=== PATIENT | female | born 1945 | race Caucasian/White ===

== ENCOUNTER → 2017-02-21 | Outpatient (CLI) | payer MEDICARE ==
--- NOTE | 2017-02-21 14:02 | MM ---
Reason for exam: screening (asymptomatic). Last mammogram was performed 1 year ago. History: Patient is postmenopausal. Family history of breast cancer in maternal grandmother. Physical Findings: A clinical breast exam by your physician is recommended on an annual basis and results should be correlated with mammographic findings. MG 3D Screening Mammo W/Cad Bilateral CC and MLO view(s) were taken. Prior study comparison: February 10, 2016, bilateral MG screening mammo w CAD. February 06, 2015, bilateral MG screening mammo w CAD. The breast tissue is heterogeneously dense. This may lower the sensitivity of mammography. Stable benign calcifications. There is no discrete abnormality. No significant changes when compared with prior studies. ASSESSMENT: Benign, BI-RAD 2 RECOMMENDATION: Routine screening mammogram of both breasts in 1 year.
== END | disposition home or self-care (01) ==
LOC: RADMAMWWP 09:12
PROVIDERS: ATTEND Family Medicine
DX: Z12.31 Encounter for screening mammogram for malignant neoplasm of breast (principal)
CPT/HCPCS: 77063; G0202

== ENCOUNTER 2017-03-14 08:54 | Day surgery (SDC) | payer MEDICARE ==
[2017-03-13 08:38] VITALS: BMI 23.6
[~2017-03-14 08:54] MED LIST: LACTATED RINGERS 1,000 ML IV SCH
[2017-03-14 09:45] VITALS: RESP 16; TEMP 97.5
[2017-03-14] MEDS ORDERED: LIDOCAINE 1% 20 ML VIAL (10MG/ML) FOR IV START INTRADERMA ONE (09:53)
[2017-03-14] MEDS ORDERED: LIDOCAINE 1% INJ 10MG/ML (20 ML MDV) ONE (09:58)
[2017-03-14] MEDS ORDERED: PROPOFOL 10 MG/ML 20 ML VIAL IV ONE (09:58)
--- NOTE | 2017-03-14 10:37 | P.PCN ---
Date of Procedure: 03/14/17 Preoperative Diagnosis: Postoperative Diagnosis: Procedure(s) Performed: Procedure: Total colonoscopy. Preoperative diagnosis: Screening for neoplasia, patient has family history of colon cancer in her father. Postoperative diagnosis: Mild sigmoid diverticulosis, otherwise, exam to the cecum within normal limits.. Preparation: HalfLytely prep. Sedation: Was provided by anesthesia. Brief clinical history: The patient is a 71-year-old female who is scheduled for this evaluation for screening for neoplasia because of family history of colon cancer in her dad. Her last examination was in December 2011. She has no abdominal complaints, bleeding or anemia. Procedure: With the patient on her left lateral decubitus position and after informed consent and adequate sedation, the perianal area was inspected and it did not show any fissures or fistulas. There were no masses felt on digital rectal examination. The Olympus CFQ 160L video colonoscope was then inserted in the rectum in the usual fashion and advanced to the cecum. The preparation was good, the mucosa appeared healthy. No polyps or tumors were seen. There was mild sigmoid diverticulosis noted with no evidence of acute diverticulitis or strictures. I retroflexed the endoscope in the rectum before the endoscope was withdrawn. The patient tolerated the procedure well. Plan: The patient was reassured. She will follow-up with you as planned and I recommended repeat exam in 5 years. Implants: Indications for Procedure: Operative Findings: Description of Procedure:
[2017-03-14 10:49] VITALS: BP 137/83; PULSE 71
== END 2017-03-14 11:14 | disposition home or self-care (01) ==
LOC: ORWHC2ENDO 08:54
DX: Z12.11 Encounter for screening for malignant neoplasm of colon (principal); K57.30 Diverticulosis of large intestine without perforation or abscess without bleeding; Z80.0 Family history of malignant neoplasm of digestive organs
CPT/HCPCS: J2001; J2704; G0105

== ENCOUNTER → 2017-08-03 | Outpatient (CLI) | payer MEDICARE | LOC: LABPAT 10:05 | PROVIDERS: ATTEND Orthopaedic Surgery | DX: Z01.818 Encounter for other preprocedural examination (principal) | CPT/HCPCS: 36415; 86850; 86900; 86901; 87070 ==

== ENCOUNTER → 2017-09-15 | Outpatient (CLI) | payer MEDICARE ==
[2017-09-15 09:46] LABS: Basophils % (A) 1 %; Eosinophils # (A) 0.1 k/uL (0-0.7); Eosinophils % (A) 3 %; HCT 43.9 % (34.0-46.0); HGB 13.7 gm/dL (11.4-16.0); Lymphocytes # (A) 0.9 k/uL (1.0-4.8); Lymphocytes % (A) 24 %; MCH 31.2 pg (25.0-35.0); MCHC 31.1 g/dL (31.0-37.0); MCV 100.3 fL (80.0-100.0); Macrocytosis Slight; Mean Platelet Volume 6.7; Monocytes # (A) 0.2 k/uL (0-1.0); Monocytes % (A) 5 %; Neutrophils # (A) 2.5 k/uL (1.3-7.7); Neutrophils % (A) 66 %; Platelet Count 204 k/uL (150-450); RBC 4.37 m/uL (3.80-5.40); RDW 13.9 % (11.5-15.5); WBC 3.8 k/uL (3.8-10.6)
[2017-09-15 09:56] LABS: INR 1.1 (<1.2); Partial Thromboplastin Time 23.4 sec (22.0-30.0); Prothrombin Time 10.3 sec (9.0-12.0)
[2017-09-15 10:06] LABS: Potassium 4.8 mmol/L (3.5-5.1)
== END | disposition home or self-care (01) ==
LOC: LABPAT 09:15
PROVIDERS: ATTEND Orthopaedic Surgery
DX: Z01.812 Encounter for preprocedural laboratory examination (principal); M16.11 Unilateral primary osteoarthritis, right hip; Z51.81 Encounter for therapeutic drug level monitoring; Z79.01 Long term (current) use of anticoagulants
CPT/HCPCS: 36415; 80051; 85025; 85610; 85730; 86850; 86900; 86901

== ENCOUNTER 2017-09-25 11:23 | Inpatient (IN) | payer MEDICARE ==
[2017-09-20 12:11] VITALS: BMI 22.3
--- NOTE | 2017-09-24 15:42 | HP ---
HISTORY AND PHYSICAL Surgery is scheduled for 09/25/2017. Lisa Hope is a 71-year-old patient seen with symptomatic right hip osteoarthritis. After having treatment options discussed, she elected to proceed with direct anterior right total hip arthroplasty. Consent regarding the procedure was obtained. Medical clearance was provided by Dr. Nelson Machado. Cardiac clearance was provided by Dr. Ferreira. PAST MEDICAL HISTORY: Noncontributory. PAST SURGICAL HISTORY: Cataract surgery. DAILY MEDICATIONS: None reported. SOCIAL HISTORY: Patient currently smokes cigarettes. PHYSICAL EXAMINATION: Physical evaluation of the right hip: There is limited range of motion with severe pain, diffuse tenderness. Positive hip impingement sign. Straight leg raise is negative. Distal neurovascular exam is intact. RADIOGRAPHS: Radiographs of the right hip revealed severe osteoarthritis and evidence of avascular necrosis. IMPRESSION: 1. Right hip osteoarthritis. 2. Tobacco use. PLAN: Direct anterior right total hip arthroplasty. MMODL / IJN: [id number] /
[~2017-09-25 11:23] MED LIST changes: +ACETAMINOPHEN TAB 500 MG TAB PO ONE; +DEXAMETHASONE SOD PHOSPHATE 10 MG/ML 1 ML VIAL IV ONE; +HYDROmorphone 0.5 MG/0.5 ML SYRINGE IVP PRN; -LACTATED RINGERS 1,000 ML IV SCH; +MELOXICAM 7.5 MG TAB PO ONE; +ONDANSETRON 4 MG/2 ML VIAL IVP ONE; +TRANEXAMIC ACID 1,000 MG in SODIUM CHLORIDE 0.9% 50 ML IVPB ONE; +ceFAZolin IN SWFI 2 GM/20 ML SYRINGE IVP ONE
[2017-09-25] MEDS: LACTATED RINGERS 1,000 ML IV SCH (11:46)
[2017-09-25] MEDS ORDERED: LIDOCAINE 1% 20 ML VIAL (10MG/ML) FOR IV START INTRADERMA ONE (11:47)
[2017-09-25] MEDS ORDERED: ROPIVACAINE 246.25 MG, EPINEPHrine 0.5 MG, KETOROLAC 30 MG, cloNIDine HCL/PF 80 MCG, WA... MISCELLANE ONE ×5 (12:10)
[2017-09-25] MEDS ORDERED: SODIUM CHLORIDE 0.9% 100 ML BAG ONE (13:00)
[2017-09-25] MEDS ORDERED: fentaNYL (PF) 50 MCG/ML 2 ML AMP ONE (13:00)
[2017-09-25] MEDS ORDERED: TRANEXAMIC ACID 1,000 MG/10 ML VIAL ONE (13:00)
[2017-09-25] MEDS ORDERED: MIDAZOLAM 2 MG/2 ML VIAL ONE (13:00)
[2017-09-25] MEDS ORDERED: ceFAZolin 3,000 MG in SODIUM CHLORIDE 0.9% IRRIGATIO 3,000 ML IRRIGATION ONE (13:32)
[2017-09-25] MEDS ORDERED: LACTATED RINGERS 1,000 ML IV ONE ×2 (13:57→14:51)
[2017-09-25] MEDS ORDERED: MORPHINE SULFATE 2 MG/ML SYRINGE IVP PRN (14:39)
[2017-09-25] MEDS ORDERED: hydrOXYzine PAMOATE 25 MG CAP PO PRN (14:39)
[2017-09-25] MEDS ORDERED: HYDROcodone/APAP 7.5-325MG 1 EACH TAB PO PRN ×2 (14:39)
[2017-09-25] MEDS ORDERED: NALOXONE 0.4 MG/ML 1 ML VIAL IV PRN (14:39)
[2017-09-25] MEDS ORDERED: ONDANSETRON 4 MG/2 ML VIAL IVP PRN (14:39)
[2017-09-25] MEDS ORDERED: MORPHINE SULFATE 4 MG/ML SYRINGE IVP PRN ×2 (14:39)
--- NOTE | 2017-09-25 14:39 | P.OP ---
Date of Procedure: 09/25/17 Preoperative Diagnosis: Right hip osteoarthritis Postoperative Diagnosis: Right hip osteoarthritis Procedure(s) Performed: Direct anterior right total hip arthroplasty Implants: 1. Depuy Corail KA size 12 standard collar press-fit femoral stem 2. Depuy pinnacle press-fit acetabular shell 54 mm 3. Depuy pinnacle polyethylene acetabular liner neutral 36 mm ID 54 mm OD 4. Biolox delta ceramic femoral head +1.5 36 mm Anesthesia: local, spinal Surgeon: Jose Flores Furniture Packer #1: Nik Vasquez Estimated Blood Loss (ml): 200 Pathology: other (Femoral head) Condition: stable Disposition: PACU Indications for Procedure: 71-year-old patient seen with symptomatic right hip osteoarthritis. After treatment options were discussed, she elected to proceed with total hip arthroplasty. Operative Findings: See description of procedure Description of Procedure: The patient was taken to the operative suite. Patient underwent a spinal anesthetic by the department of anesthesia. Patient was then transferred to the Osborn table. Patient was given preoperative IV antibiotics and TXA. Both lower extremities were placed in standard leg spars. The hip was then prepped and draped in the normal sterile orthopedic fashion. A standard anterior incision was made beginning 3 cm lateral and 1 cm distal to the ASIS extending 10 cm. Dissection was then carried down through the subcutaneous soft tissues down to the fascia overlying the tensor fascia tam. An incision was now made through the fascia. Careful dissection was taken down exposing the tensor fascia tam muscle. A Cobra retractor was now placed along the medial femoral neck and a second one along the lateral femoral neck. The venous circumflex vessels were now identified, cauterized and clipped. We identified the anterior hip capsule. An incision was made through the hip capsule along the lateral border. Tag sutures were then placed along the anterior capsule and lateral capsule. We then performed a capsulotomy. Retractors were now placed around the femoral neck itself. A Cobra retractor was now placed along the anterior acetabulum. Good exposure was now noted of the femoral head/neck complex. Residual labrum was debrided out. We placed the extremity into 3 turns of fine traction. We were then able to introduce a skid in between the femoral head and acetabulum. A placed a awl into the femoral head. We took 2 turns of traction off the extremity. Rotation was now released. The femoral head was then dislocated without difficulty. Additional releasing was performed of the capsule. The head was then reduced. All traction was released. A femoral neck cut was now made with a sagittal saw. It was completed with an osteotome at the lateral neck area. The femoral head was now removed without difficulty. The extremity was now rotated to 60 of external rotation. It was locked in position. Residual labrum was now debrided out. Serial reaming was performed of the acetabulum. Once we reached the appropriate size and a trial was position and fit nicely. The appropriate size was now chosen opened and made available. The wound was irrigated with pulse lavage mechanical irrigation. The acetabular cup was introduced into the acetabulum without difficulty. The C-arm/fluoroscopy was now brought into the operative field. We made sure we had a true AP pelvic view. We now under direct C-arm/fluoroscopy introduced into the acetabular component with appropriate version and inclination. It was well seated and stable. The C-arm was pulled back. An appropriate liner was introduced and clicked into position. It was felt to be stable. At this point retractors were removed. The extremity was now placed into 120 external rotation with no traction. The leg was now dropped to the ground and adducted. Appropriate retractors were now positioned along the proximal femur. We also placed our femoral look into position. Additional capsular releasing was performed to gain access to the proximal femur. We now used a box osteotome. A canal finder was now utilized. Serial broaching was now performed until we reached the appropriate size with good overall rotational stability. Appropriate calcar planing was performed. A trial head/neck was placed into position. The hip was now reduced. The C-arm/fluoroscopy was brought back into the operative field. A spot film was obtained of the nonoperative hip. A spot film was obtained of the trial components. Overlays were performed, we noted good overall alignment and positioning for determining leg length. The C-arm/fluoroscopy was pulled back. Retractors were repositioned and the hip was dislocated. The leg was again taken down to the ground and adducted. Appropriate retractors were repositioned as well as the femoral hook. All trial components were removed. The wound was irrigated with pulse lavage mechanical irrigation. The deep soft tissues were infiltrated local analgesic. The femoral implant was opened along with the femoral head. The femoral implant was introduced with good purchase and fixation noted. The femoral head was introduced with good positioning and fixation noted. Retractors were now removed. The hip was now reduced. There appeared be good positioning of the hip. This was confirmed with intraoperative fluoroscopy and spot films were obtained to document that. A second gram of TXA was given. Bipolar cautery had been utilized intermittently through the procedure for hemostasis. The wound was irrigated copiously with pulse lavage mechanical irrigation. The fascia was repaired with Vicryl suture. The subcutaneous soft tissues were repaired in layers with Vicryl suture. The skin was approximated with pernio/Dermabond. Sterile dressings were applied. Patient was then awakened, transferred to a bed and taken to recovery in stable condition. Manny MOLINA assisted with the procedure.
--- NOTE | 2017-09-25 14:39 | XR ---
Fluoroscopy INDICATION: Pain FINDINGS: Fluoroscopy time: 8 seconds. Images obtained: 1. IMPRESSIONS: 1. Documentation of fluoroscopy.
[2017-09-25] MEDS: traMADol 50 MG TAB PO SCH ×2 (17:45→22:37)
[2017-09-25] MEDS: SODIUM CHLORIDE 0.9% 1,000 ML IV SCH (19:21)
[2017-09-25] MEDS: SENNOSIDES-DOCUSATE SODIUM 1 EACH TAB PO SCH ×2 (22:36→22:38)
[2017-09-25] MEDS: ceFAZolin IN SWFI 2 GM/20 ML SYRINGE IVP SCH (22:37)
[2017-09-25 22:52] VITALS: RESP 16
--- NOTE | 2017-09-26 01:03 | CONS ---
CONSULTATION DATE OF SERVICE: 09/25/2017. REASON FOR CONSULTATION: Medical management, requested by Dr. Flores. CONSULTATION: This is a pleasant 71-year-old patient of Dr. Machado who has undergone a right total hip arthroplasty. The patient has had pain coming on for quite some time, progressively getting worse. For some extent it is cut down by pain medications. Because it was not controlled, it was decided to proceed with right total hip arthroplasty. It was worse with exertion, better with rest, with not much radiation. The patient also has some pain in the left hip postoperative. No chest pain short of breath. No nausea, vomiting. Did tolerate a diet. REVIEW OF SYSTEMS: CONSTITUTIONAL: None. HEENT: None. RESPIRATORY: None. CARDIOVASCULAR: None. GASTROINTESTINAL: None. GENITOURINARY: None. MUSCULOSKELETAL: Pain in both the hips. DERMATOLOGICAL, HEMATOLOGIC, LYMPHATIC: None. PSYCHIATRY: None. NEUROLOGIC: None. PAST MEDICAL HISTORY: Macular degeneration, osteoarthritis of the hips. PAST SURGICAL HISTORY: Cardiac catheterization, pilonidal cyst surgery. SOCIAL HISTORY: Drinks a glass of wine daily. . No alcohol. FAMILY HISTORY: Colon cancer. HOME MEDICATIONS: 1. Vitamin E 400 units a day. 2. Fish oil. 3. . 4. Motrin 600 mg p.o. p.r.n. 5. Vitamin D3, 2000 units p.o. daily. 6. Vitamin C 1000 mg p.o. daily. ALLERGIES: IODINE, SHELLFISH. PHYSICAL EXAMINATION: Temperature 97.1, pulse 87, respirations 17, blood pressure 112/59, pulse ox 98% on room. GENERAL APPEARANCE: Average build, sitting up, comfortable. EYES: Pupils equal. Conjunctivae normal. HEENT: Oral cavity normal. NECK: JVD not raised. Mass not palpable. Respiratory effort normal. LUNGS: Clear. CARDIOVASCULAR: 1st and 2nd sounds normal. No edema. ABDOMEN: Soft, nontender. Liver and spleen not palpable. LYMPHATIC: No lymph palpable in the neck, groin, or axillae. PSYCHIATRY: Alert, oriented x3. Mood and affect normal. NEUROLOGIC: Pupils equal. Cranial nerves grossly intact. Power and sensation grossly intact. EXTREMITIES: Dressing over the right hip. INVESTIGATIONS: Blood work from 09/15/2017 shows white count 3.8, hemoglobin 13.7, potassium 4.8. ASSESSMENT: 1. Right total hip arthroplasty. 2. Primary osteoarthritis of the left hip. PLAN: Pain control is in place. Anticoagulation as per Dr. Flores, in the form of Lovenox. Care was discussed with the patient. Questions were answered. Thank you, Dr. Flores. MMBRIL / IJN: [id number] /
[2017-09-26] MEDS: ceFAZolin IN SWFI 2 GM/20 ML SYRINGE IVP SCH (06:05)
[2017-09-26 07:05] LABS: Basophils % (A) 0 %; Eosinophils % (A) 1 %; HCT 32.2 % (34.0-46.0); Lymphocytes # (A) 1.3 k/uL (1.0-4.8); Lymphocytes % (A) 17 %; MCH 31.1 pg (25.0-35.0); MCHC 32.2 g/dL (31.0-37.0); MCV 96.4 fL (80.0-100.0); Mean Platelet Volume 7.2; Monocytes # (A) 0.4 k/uL (0-1.0); Monocytes % (A) 5 %; Neutrophils % (A) 77 %; Platelet Count 177 k/uL (150-450); RBC 3.34 m/uL (3.80-5.40); RDW 13.5 % (11.5-15.5); WBC 7.8 k/uL (3.8-10.6)
[2017-09-26 07:25] LABS: HGB 10.4 gm/dL (11.4-16.0)
[2017-09-26 07:36] VITALS: BP 95/54; PULSE 80; TEMP 98.2
[2017-09-26] MEDS: LACTATED RINGERS 1,000 ML IV SCH (08:41)
[2017-09-26] MEDS ORDERED: MELOXICAM 7.5 MG TAB PO SCH (09:00)
[2017-09-26] MEDS ORDERED: ASCORBIC ACID 500 MG TAB PO SCH (09:00)
[2017-09-26] MEDS ORDERED: FAMOTIDINE 20 MG TAB PO SCH (09:00)
[2017-09-26] MEDS ORDERED: CHOLECALCIFEROL 1,000 UNIT TAB PO SCH (09:00)
[2017-09-26] MEDS ORDERED: ENOXAPARIN 40 MG/0.4 ML SYRINGE SQ SCH (09:00)
[2017-09-26] MEDS ORDERED: VITAMIN E (DL,TOCOPHERYL ACET) 400 UNIT CAP PO SCH (09:00)
[2017-09-26] MEDS: traMADol 50 MG TAB PO SCH ×2 (10:11→12:52)
[2017-09-26] MEDS: SODIUM CHLORIDE 0.9% 1,000 ML IV SCH (11:36)
--- NOTE | 2017-09-26 21:23 | PN ---
PROGRESS NOTE DATE OF SERVICE: 09/26/2017 PRESENTING COMPLAINT: Right hip surgery. INTERVAL HISTORY: Patient is status post right hip surgery. Pain is controlled. No nausea, vomiting, tolerated her breakfast, has been out of bed, sitting up comfortably. REVIEW OF SYSTEMS: Done for constitutional, cardiovascular, GI, pulmonary; relevant findings as above. CURRENT MEDICATIONS: Reviewed. EXAMINATION: Temperature 98.2, pulse 60, respirations 16, blood pressure 95/54, pulse ox 96% on room air. GENERAL APPEARANCE: Sitting up in a chair, comfortable. EYES: Pupils equal. Conjunctivae normal. HEENT: External appearance of nose and ears normal. Oral cavity normal. NECK: JVD not raised. Mass not palpable. RESPIRATORY: Effort normal. Lungs are clear. CARDIOVASCULAR: First and second heart sounds normal. No edema. ABDOMEN: Soft, nontender. Liver and spleen not palpable. PSYCHIATRIC: Alert and oriented x3. Mood and affect normal. INVESTIGATIONS: Hemoglobin 10.4. ASSESSMENT: 1. Right total hip arthroplasty. 2. Primary osteoarthritis of the left hip. 3. Acute blood loss anemia as expected from surgery. 4. Mild hypotension from blood loss. PLAN: Patient is hemodynamically stable in terms of that he is asymptomatic. The patient may choose to take iron supplementation. Should follow up with the family doctor upon discharge. Thank you, Dr. Machado. DANY / FABYN: [id number] /
--- NOTE | 2017-09-28 09:05 | P.DS ---
Providers Date of admission: 09/25/17 11:23 Expected date of discharge: 09/26/17 Attending physician: Jose Flores Consults: 09/25/17 14:39 Consult Physician Routine Consulting Provider: Ruben Núñez Consult Reason/Comments: Medical management Do you want consulting provider notified?: Yes Primary care physician: [facility] Course: Date of admission: 09/25/2017 Date of discharge: 09/26/2017 Admission diagnosis: status post right total hip arthroplasty Discharge diagnosis: same Attending physician: Dr. Flores Surgical procedures: Right total hip arthroplasty Brief history: Patient is a 71-year-old female with a history of progressive primary right hip osteoarthritis. At this point patient has failed conservative treatment measures and has opted to proceed with a elective right total hip arthroplasty. Hospital course: Details of patient's surgery can be found in operative report. Patient tolerated the procedure well and was subsequently transported to orthopedic floor. Patient's orthopeidc and medical care was provided daily. Patient had daily laboratory tests performed for evaluation of overall blood counts. Patient had daily physical therapy to include strengthening range of motion as well as education with walker ambulation. Patient was treated with Lovenox for their postoperative DVT prophylaxis during their inpatient stay. Patient was noted to have a relatively uneventful postoperative course. Patient reported satisfactory pain control with oral pain medications by postoperative day 0. Patient showed satisfactory progress with physical therapy. Patient moved steadily through the program and had no difficulty meeting the goals by postoperative day 1. Given patient's otherwise satisfactory course and having met physical therapy goals, plan is to discharge patient home on postoperative day 1. Discharge condition/disposition: Patient will be discharged home in stable condition. Discharge medications: Instructions are given on resumption of patient's normal daily medications per primary care recommendation, in addition patient will be prescribed [place] 5 mg/325 mg, Colace 100 mg, aspirin tourniquet 5 mg. Discharge instructions: 1. Wound care and infection precautions, keep incision dry and covered while showering, no lotions, creams, moisturizers. No soaking, tubs, pools, hottubs. Do not scrub over the incision. 2. Weight-bear as tolerated with walker / cane until follow-up. 3. Ice and elevate when necessary. Do not exceed 20 minutes per hour with ice pack. 4. Utilize compression sleeve until seen at first follow up appointment. 5. Visiting nursing care. 6. Home physical therapy 7. Pain meds and anticoagulants per prescription. 8. Pain medication has potential to cause constipation. Increase oral fluid and fiber intake. Contact primary care provider if you have not had a bowel movement within 48 hours after discharge 9. No anti-inflammatory medication until discussed at first post operative visit, this including Motrin, Aleve, Mobic, Diclofenac. 10. Follow up in office at 2 weeks postop with Manny Vasquez PA-C 11. Follow up with your primary care doctor 7-10 days after discharge. 12. Contact [facility] with any questions, . Procedures: Right total hip arthroplasty Patient Condition at Discharge: Good Plan - Discharge Summary Discharge Rx Participant: Yes New Discharge Prescriptions: New Aspirin 325 mg PO BID #60 tab Docusate [Colace] 100 mg PO DAILY #30 capsule Hydrocodone/Acetaminophen [[place] 5-325] 1 each PO Q6HR PRN #40 tab PRN Reason: Pain No Action Cholecalciferol (Vitamin D3) [Vitamin D3] 2,000 unit PO DAILY [place]-3 Fatty Acids/Fish Oil [Fish Oil 1,000 mg Softgel] 1 cap PO DAILY Vitamin E (Dl,Tocopheryl Acet) [Vitamin E] 400 unit PO DAILY Lutein 20 mg PO DAILY Ascorbic Acid [Vitamin C] 1,000 mg PO DAILY Milk Thistle 150 mg PO DAILY Discharge Medication List Ascorbic Acid [Vitamin C] 1,000 mg PO DAILY 03/13/17 [History] Cholecalciferol (Vitamin D3) [Vitamin D3] 2,000 unit PO DAILY 03/13/17 [History] Lutein 20 mg PO DAILY 03/13/17 [History] [place]-3 Fatty Acids/Fish Oil [Fish Oil 1,000 mg Softgel] 1 cap PO DAILY [History] Vitamin E (Dl,Tocopheryl Acet) [Vitamin E] 400 unit PO DAILY 03/13/17 [History] Milk Thistle 150 mg PO DAILY 08/07/17 [History] Aspirin 325 mg PO BID #60 tab 09/26/17 [Rx] Docusate [Colace] 100 mg PO DAILY #30 capsule 09/26/17 [Rx] Hydrocodone/Acetaminophen [[place] 5-325] 1 each PO Q6HR PRN #40 tab 09/26/17 [Rx] Follow up Appointment(s)/Referral(s): [facility], [NON-STAFF] - Nik Vasquez PAC [PHYSICIAN TWISTING PRESS OPERATOR] - 2 Weeks Activity/Diet/Wound Care/Special Instructions: Ron Pacheco [facility] - [phone] - will deliver to bedside prior to discharge. Orthopedic Discharge Instructions: 1. Wound care and infection precautions, keep incision dry and covered while showering, no lotions, creams, moisturizers. No soaking, pools, hot tubs. Do not scrub over incision. 2. Weight-bear as tolerated with walker / cane until follow-up. 3. Ice and elevate when necessary. Do not exceed 20 minutes per hour with ice pack. 4. Utilize compression sleeve until seen at first follow up appointment. 5. Visiting nursing care. 6. Home physical therapy. 7. Pain meds and anticoagulants per prescription. 8. Pain medication has potential to cause constipation. Increase oral fluid and fiber intake. Contact primary care provider if you have not had a bowel movement within 48 hours after discharge. 9. No anti-inflammatory medication until discussed at first post operative visit, this including Motrin, Aleve, Mobic, Diclofenac. 10. Follow up in office at 2 weeks postop with Manny Vasquez PA-C 11. Follow up with your primary care doctor 7-10 days after discharge. 12. Contact [facility] with any questions, . Discharge Disposition: HOME WITH HOME HEALTH SERVICES
== END 2017-09-26 13:56 | disposition home health service (06) | DRG 470 ==
LOC: 2ORMAIN 11:23 → 3SUR 14:48
PROVIDERS: ADMIT Orthopaedic Surgery; ATTEND Orthopaedic Surgery
PROC: 0SR904A Replacement of Right Hip Joint with Ceramic on Polyethylene Synthetic Substitute, Uncemented, Open Approach (ICD-10-PCS; principal; 2017-09-25 13:20)
DX: M16.0 Bilateral primary osteoarthritis of hip (principal); I95.9 Hypotension, unspecified; D62 Acute posthemorrhagic anemia; I45.10 Unspecified right bundle-branch block; I25.10 Atherosclerotic heart disease of native coronary artery without angina pectoris; H35.30 Unspecified macular degeneration; F17.210 Nicotine dependence, cigarettes, uncomplicated; Z98.49 Cataract extraction status, unspecified eye; Z79.899 Other long term (current) drug therapy; Z88.8 Allergy status to other drugs, medicaments and biological substances; Z91.013 Allergy to seafood
CPT/HCPCS: 73501; 85025; 86850; 86900; 86901; 88300

== ENCOUNTER → 2018-04-27 | Outpatient (CLI) | payer MEDICARE ==
--- NOTE | 2018-04-30 13:19 | MM ---
Reason for exam: screening (asymptomatic). Last mammogram was performed 1 year and 2 months ago. History: Patient is postmenopausal. Family history of breast cancer in maternal grandmother. Physical Findings: A clinical breast exam by your physician is recommended on an annual basis and results should be correlated with mammographic findings. MG 3D Screening Mammo W/Cad Bilateral CC and MLO view(s) were taken. Prior study comparison: February 21, 2017, bilateral MG 3d screening mammo w/cad. February 10, 2016, bilateral MG screening mammo w CAD. There are scattered fibroglandular densities. No significant changes when compared with prior studies. ASSESSMENT: Benign, BI-RAD 2 RECOMMENDATION: Routine screening mammogram of both breasts in 1 year.
== END | disposition home or self-care (01) ==
LOC: RADMAMWWP 12:56
PROVIDERS: ATTEND Family Medicine
DX: Z12.31 Encounter for screening mammogram for malignant neoplasm of breast (principal)
CPT/HCPCS: 77063; 77067

== ENCOUNTER → 2018-07-11 | Outpatient (CLI) | payer MEDICARE ==
--- NOTE | 2018-07-11 16:13 | BD ---
EXAMINATION TYPE: Axial Bone Density DATE OF EXAM: 07/11/2018 CLINICAL HISTORY: Height: 62.5 inches Weight: 130 FRAX RISK QUESTIONS: Alcohol (3 or more units per day): no Family History (Parent hip fracture): no Glucocorticoids (More than 3mos): no (Ex: prednisone, prednisolone, methylprednisolone, dexamethasone, and hydrocortisone). History of Fracture in Adulthood: no Secondary Osteoporosis: 1. Type 1 Diabetes: no 2. Hyperthyroidism: no 3. Menopause before 45: no 4. Malnutrition: no 5. Chronic liver disease: no Rheumatoid Arthritis: no Current Tobacco Use: no RISK FACTORS HISTORY OF: Surgery to Hip(right)/Wrist (right): yes When: about 10 months ago Family History of Osteoporosis: no Active: yes Diet low in dairy products/other sources of calcium: yes Postmenopausal woman: yes Take estrogen and/or progesterone medications: no Lost more than 2 inches in height since high school: no Frequent falls: no Poor Health: no Hyperparathyroidism: no Adrenal Insufficiency: no MEDICATIONS: Prednisone or other steroids: no Thyroid Medications: no Osteoporosis Medications: not now Which medication: Fosamax Additional Medications: Additional History: EXAM MEASUREMENTS: Bone mineral densitometry was performed using the [employer] System. Bone mineral density as measured about the Lumbar spine is: ----- L1-L4(G/cm2): 1.304 T Score Values are as follows: ----- L2: 1.6 ----- L3: 1.2 ----- L4: 1.0 ----- L1-L4: 1.0 Bone mineral density has: Decreased -3.9% since study of: 12/27/2011 Bone mineral density about the L hip (g/cm2): 0.950 T Score values are as follows: -----L Neck: -0.6 -----L Total: -1.2 Bone mineral density has: Increased 2.2% since study of: 12/27/2011 IMPRESSION: Osteopenia (T Score between -2.5 and -1). There is slightly increased risk of fracture and the patient may be considered for treatment. Re-Screen 2-5 years. NOTE: T-SCORE=SD OF THE YOUNG ADULT MEAN.
== END | disposition home or self-care (01) ==
LOC: RADBDWWP 13:09
PROVIDERS: ATTEND Family Medicine
DX: Z13.820 Encounter for screening for osteoporosis (principal); M85.88 Other specified disorders of bone density and structure, other site
CPT/HCPCS: 77080

== ENCOUNTER → 2019-05-07 | Outpatient (CLI) | payer MEDICARE ==
--- NOTE | 2019-05-10 09:24 | MM ---
Reason for exam: screening (asymptomatic). Last mammogram was performed 1 year ago. History: Patient is postmenopausal. Family history of breast cancer in maternal grandmother. Physical Findings: A clinical breast exam by your physician is recommended on an annual basis and results should be correlated with mammographic findings. MG 3D Screening Mammo W/Cad Bilateral CC and MLO view(s) were taken. XCCL view(s) were taken of the right breast. Prior study comparison: April 27, 2018, bilateral MG 3d screening mammo w/cad. February 21, 2017, bilateral MG 3d screening mammo w/cad. There are scattered fibroglandular densities. No significant changes when compared with prior studies. ASSESSMENT: Benign, BI-RAD 2 RECOMMENDATION: Routine screening mammogram of both breasts in 1 year.
== END | disposition home or self-care (01) ==
LOC: RADMAMWWP 11:42
PROVIDERS: ATTEND Family Medicine
DX: Z12.31 Encounter for screening mammogram for malignant neoplasm of breast (principal); Z78.0 Asymptomatic menopausal state; Z80.3 Family history of malignant neoplasm of breast
CPT/HCPCS: 77063; 77067

== ENCOUNTER → 2020-06-24 | Outpatient (CLI) | payer MEDICARE ==
--- NOTE | 2020-06-30 10:51 | MM ---
Reason for exam: screening (asymptomatic). Last mammogram was performed 1 year and 2 months ago. History: Patient is postmenopausal. Family history of breast cancer in maternal grandmother. Physical Findings: A clinical breast exam by your physician is recommended on an annual basis and results should be correlated with mammographic findings. MG 3D Screening Mammo W/Cad Bilateral CC and MLO view(s) were taken. Prior study comparison: May 07, 2019, bilateral MG 3d screening mammo w/cad. April 27, 2018, bilateral MG 3d screening mammo w/cad. The breast tissue is heterogeneously dense. This may lower the sensitivity of mammography. Stable medial anterior asymmetric density right CC view. No significant changes when compared with prior studies. ASSESSMENT: Benign, BI-RAD 2 RECOMMENDATION: Routine screening mammogram of both breasts in 1 year.
== END | disposition home or self-care (01) ==
LOC: RADMAMWWP 15:08
PROVIDERS: ATTEND Family Medicine
DX: Z12.31 Encounter for screening mammogram for malignant neoplasm of breast (principal)
CPT/HCPCS: 77063; 77067

== ENCOUNTER → 2021-09-23 | Outpatient (CLI) | payer MEDICARE ==
--- NOTE | 2021-09-24 13:27 | MM ---
Reason for exam: screening (asymptomatic). Last mammogram was performed 1 year and 3 months ago. History: Patient is postmenopausal. Family history of breast cancer in maternal grandmother. Physical Findings: A clinical breast exam by your physician is recommended on an annual basis and results should be correlated with mammographic findings. MG 3D Screening Mammo W/Cad Bilateral CC and MLO view(s) were taken. Prior study comparison: June 24, 2020, bilateral MG 3d screening mammo w/cad. May 07, 2019, bilateral MG 3d screening mammo w/cad. The breast tissue is heterogeneously dense. This may lower the sensitivity of mammography. Stable benign calcifications. There is no discrete abnormality. No significant changes when compared with prior studies. ASSESSMENT: Benign, BI-RAD 2 RECOMMENDATION: Routine screening mammogram of both breasts in 1 year.
== END | disposition home or self-care (01) ==
LOC: RADMAMWWP 13:51
PROVIDERS: ATTEND Family Medicine
DX: Z12.31 Encounter for screening mammogram for malignant neoplasm of breast (principal); Z78.0 Asymptomatic menopausal state; Z80.3 Family history of malignant neoplasm of breast
CPT/HCPCS: 77063; 77067

== ENCOUNTER → 2021-10-22 | Outpatient (CLI) | payer MEDICARE ==
--- NOTE | 2021-10-22 09:22 | US ---
EXAMINATION TYPE: US thyroid st tissue head/neck DATE OF EXAM: 10/22/2021 COMPARISON: NONE CLINICAL HISTORY: R22.1 LOCALIZED SWELLING, MASS AND LUMP, NECK GLAND SIZE: Right Lobe: 4.3 x 1.2 x 1.5 cm Overall Parenchyma: homogenous Left Lobe: 3.7 x 1.3 x 1.2 cm Overall Parenchyma: homogeneous Isthmus Thickness: 0.7 cm NODULES RIGHT: # of nodules measured on right: 0 LEFT: # of nodules measured on left: 0 ISTHMUS: # of nodules measured in the isthmus: 0 Bilateral neck scanned, no evidence of lymphadenopathy. Homogeneous somewhat small thyroid without significant solid or cystic nodule. IMPRESSION: As above
== END | disposition home or self-care (01) ==
LOC: RADUSWWP 08:44
PROVIDERS: ATTEND Family Medicine
DX: R22.1 Localized swelling, mass and lump, neck (principal)
CPT/HCPCS: 76536

== ENCOUNTER 2022-06-21 08:28 | Day surgery (SDC) | payer MEDICARE ==
[~2022-06-21 08:28] MED LIST changes: -ACETAMINOPHEN TAB 500 MG TAB PO ONE; -DEXAMETHASONE SOD PHOSPHATE 10 MG/ML 1 ML VIAL IV ONE; -HYDROmorphone 0.5 MG/0.5 ML SYRINGE IVP PRN; +LACTATED RINGERS 1,000 ML IV SCH; +LIDOCAINE 1% (10MG/ML) FOR IV START INTRADERMA PRN; -MELOXICAM 7.5 MG TAB PO ONE; -ONDANSETRON 4 MG/2 ML VIAL IVP ONE; -TRANEXAMIC ACID 1,000 MG in SODIUM CHLORIDE 0.9% 50 ML IVPB ONE; -ceFAZolin IN SWFI 2 GM/20 ML SYRINGE IVP ONE
[2022-06-21 09:17] VITALS: RESP 16; TEMP 97.8
[2022-06-21] MEDS ORDERED: PROPOFOL 10 MG/ML 20 ML VIAL IV ONE (10:10)
--- NOTE | 2022-06-21 10:29 | P.PCN ---
Date of Procedure: 06/21/22 Procedure(s) Performed: BRIEF HISTORY: Patient is a 76-year-old pleasant white female scheduled for an elective colonoscopy as a part f screening for colon cancer and strong family history of colon cancer. Her dad was diagnosed with colon cancer at age, grandmother in her 60s and paternal aunt in her 60s. PROCEDURE PERFORMED: Colonoscopy with biopsy . PREOPERATIVE DIAGNOSIS: Screening for colon cancer/family history of colon cancer sedation per Anesthesia. PROCEDURE: After informed consent was obtained, the patient, was brought into the endoscopy unit. IV sedation was administered by Anesthesia under continuous monitoring. Digital rectal examination was normal. Initially the Olympus CF-160 flexible video colonoscope was then inserted in the rectum, gradually advanced into the cecum without any difficulty. Careful examination was performed as the scope was gradually being withdrawn. Ileocecal valve and the appendiceal orifice were visualized and appeared normal. Prep was excellent. Mucosa of the cecum 5 mm flat polyp that was removed by cold biopsy. Rest of the ascending colon, t ransverse colon, descending colon, sigmoid colon, and rectum appeared normal. Retroflexion was performed in the rectum and no lesions were seen. The patient tolerated the procedure well. IMPRESSION: 5 mm flat cecal polyp status post cold biopsy Rest of the colon appeared normal RECOMMENDATIONS: Findings of this examination were discussed with the patient as well as a family. She was advised to follow with the biopsy results. If the biopsy was adenoma she can have a repeat colonoscopy in 5 years..
[2022-06-21 11:05] VITALS: BP 128/76; PULSE 83
== END 2022-06-21 11:17 | disposition home or self-care (01) ==
LOC: ORWHC2ENDO 08:28
PROVIDERS: ATTEND Internal Medicine Gastroenterology
DX: Z12.11 Encounter for screening for malignant neoplasm of colon (principal); K63.5 Polyp of colon; Z80.0 Family history of malignant neoplasm of digestive organs
CPT/HCPCS: 88305; 45380; J2704

== ENCOUNTER 2023-05-22 11:14 | Inpatient (IN) | payer MEDICARE ==
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
[2023-05-22] MEDS ORDERED: MORPHINE SULFATE 4 MG/ML SYRINGE IVP STA (13:46)
[2023-05-22] MEDS ORDERED: SODIUM CHLORIDE 0.9% 1,000 ML IV ONE (13:47)
[2023-05-22] MEDS ORDERED: ONDANSETRON 4 MG/2 ML VIAL IVP STA (13:47)
[2023-05-22] MEDS ORDERED: MORPHINE SULFATE 4 MG/ML SYRINGE IM STA (14:14)
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
[2023-05-22] MEDS ORDERED: NALOXONE 0.4 MG/ML 1 ML VIAL IV PRN (14:30)
[2023-05-22] MEDS ORDERED: ONDANSETRON 4 MG/2 ML VIAL IVP PRN (14:30)
[2023-05-22 14:43] LABS: Basophils % (A) 0 %; Eosinophils % (A) 0 %; HCT 43.9 % (34.0-46.0); HGB 14.2 gm/dL (11.4-16.0); Lymphocytes # (A) 0.7 k/uL (1.0-4.8); Lymphocytes % (A) 7 %; MCH 31.7 pg (25.0-35.0); MCHC 32.4 g/dL (31.0-37.0); Mean Platelet Volume 8.1; Monocytes # (A) 0.4 k/uL (0-1.0); Monocytes % (A) 4 %; Neutrophils # (A) 9.1 k/uL (1.3-7.7); Neutrophils % (A) 88 %; Platelet Count 182 k/uL (150-450); RBC 4.48 m/uL (3.80-5.40); WBC 10.4 k/uL (3.8-10.6)
[2023-05-22 15:00] LABS: INR 0.9 (<1.2); Prothrombin Time 10.4 sec (10.0-12.5)
[2023-05-22 15:10] LABS: ALT 33 U/L (4-34); AST 64 U/L (14-36); African American GFR (CKD) >90 (>60 ml/min/1.73 sqM); Albumin 4.3 g/dL (3.5-5.0); Alkaline Phosphatase 84 U/L (38-126); Anion Gap 11 mmol/L; Blood Urea Nitrogen 13 mg/dL (7-17); Calcium 9.5 mg/dL (8.4-10.2); Carbon Dioxide 27 mmol/L (22-30); Chloride 101 mmol/L (98-107); Glucose 113 mg/dL (74-99); Non-African American GFR(CKD) >90 (>60 ml/min/1.73 sqM); Potassium 4.5 mmol/L (3.5-5.1); Sodium 139 mmol/L (137-145); Total Bilirubin 0.7 mg/dL (0.2-1.3); Total Protein 7.3 g/dL (6.3-8.2)
[2023-05-22] MEDS: HYDROmorphone 0.5 MG/0.5 ML SYRINGE IVP PRN ×2 (16:15→20:27)
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
[2023-05-23] MEDS: HYDROmorphone 0.5 MG/0.5 ML SYRINGE IVP PRN ×4 (00:14→21:14)
[2023-05-23] MEDS: ACETAMINOPHEN TAB 325 MG TAB PO PRN ×3 (00:15→14:30)
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
[2023-05-23] MEDS: SODIUM CHLORIDE 0.9% 1,000 ML IV SCH ×3 (03:06→21:15)
[2023-05-23 05:15] LABS: Glucose,Whole Blood 93 mg/dL (70-110)
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
--- NOTE | 2023-05-23 09:29 | XR ---
EXAMINATION TYPE: XR chest 1V portable DATE OF EXAM: 05/23/2023 HISTORY: Shortness of breath. COMPARISON: 05/22/2023 TECHNIQUE: Single view of the chest is submitted. FINDINGS: Multiple right-sided rib fractures are redemonstrated. There is persistent infiltrate right medial shanel ng base as well as increased opacity at the left lower lobe. No evidence for sizable pneumothorax. Th e heart is stable. Hilar and mediastinal structures are within normal limits. Degenerative changes are seen of the dorsal spine. IMPRESSION: 1. Examination is unchanged.
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
[2023-05-23] MEDS ORDERED: THIAMINE 100 MG/ML 2 ML VIAL IM STA (15:26)
[2023-05-23] MEDS ORDERED: LORazepam 0.5 MG TAB PO PRN (15:26)
[2023-05-23] MEDS ORDERED: LORazepam 1 MG TAB PO PRN ×3 (15:26)
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
[2023-05-23] MEDS: MULTIVITAMINS, THERA 1 EACH TAB PO SCH (15:53)
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
[2023-05-23] MEDS: HEPARIN SODIUM,PORCINE 5,000 UNIT/ML 1 ML VIAL SQ SCH (21:14)
--- NOTE | 2023-05-23 21:46 | CA ---
Transthoracic Echo Report Name: Lisa Hope Age: 77 Gender: F : 1945 Exam Date: 05/23/2023 07:52 Exam Location: [facility] Ht (in): 63 Wt (lb): 140 Ordering Physician: Mis Caal Attending/Referring Phys: [id number], Ten Establishment Guide Yunior Becerril Procedure CPT: Indications: cardiac contusion Cardiac Hx: Technical Quality: Fair Contrast 1: Total Dose (mL): Contrast 2: Total Dose (mL): MEASUREMENTS (Male / Female) Normal Values 2D ECHO LV Diastolic Diameter PLAX 4.0 cm 4.2 - 5.9 / 3.9 - 5.3 cm LV Systolic Diameter PLAX 2.5 cm IVS Diastolic Thickness 1.0 cm 0.6 - 1.0 / 0.6 - 0.9 cm LVPW Diastolic Thickness 1.1 cm 0.6 - 1.0 / 0.6 - 0.9 cm LV Relative Wall Thickness 0.5 RV Internal Dim ED PLAX 2.6 cm LVOT Diameter 1.9 cm Aortic Root Diameter 2.6 cm LA Systolic Diameter LX 2.4 cm 3.0 - 4.0 / 2.7 - 3.8 cm LV Diastolic Volume MOD BP 46.0 cm??? 67 - 155 / 56 - 104 cm??? LV Systolic Volume MOD BP 16.0 cm??? 22 - 58 / 19 - 49 cm??? LV Ejection Fraction MOD BP 65.1 % >= 55 % LV Cardiac Index MOD BP 1591.5 cm???/min???m??? LV Diastolic Volume MOD 4C 60.8 cm??? LV Systolic Volume MOD 4C 21.7 cm??? LV Ejection Fraction MOD 4C 64.3 % LV Cardiac Index MOD 4C 2079.9 cm???/min???m??? LV Diastolic Length 4C 6.6 cm LV Systolic Length 4C 4.9 cm LV Diastolic Volume MOD 2C 31.1 cm??? LV Systolic Volume MOD 2C 11.7 cm??? LV Ejection Fraction MOD 2C 62.3 % LV Cardiac Index MOD 2C 1030.4 cm???/min???m??? LV Diastolic Length 2C 5.8 cm LV Systolic Length 2C 5.1 cm LA Volume 31.1 cm??? 18 - 58 / 22 - 52 cm??? LA Volume Index 18.4 cm???/m??? 16 - 28 cm???/m??? Ascending Aorta Diameter 2.9 cm DOPPLER AV Peak Velocity 150.1 cm/s AV Peak Gradient 9.0 mmHg LVOT Peak Velocity 91.6 cm/s LVOT Peak Gradient 3.4 mmHg LVOT Velocity Time Integral 18.2 cm LVOT Stroke Volume 52.2 cm??? LVOT Stroke Volume Index 31.4 ml/m??? LVOT Cardiac Index 2775.4 cm???/min???m??? AV Area Cont Eq pk 1.7 cm??? MV Peak Velocity 113.2 cm/s MV Peak Gradient 5.1 mmHg MV Mean Velocity 55.5 cm/s MV Mean Gradient 1.5 mmHg MV Velocity Time Integral 33.0 cm Mitral E Point Velocity 99.9 cm/s Mitral A Point Velocity 96.6 cm/s Mitral E to A Ratio 1.0 MV Deceleration Time 214.8 ms MV E' Velocity 9.1 cm/s Mitral E to MV E' Ratio 10.9 FINDINGS Left Ventricle Normal LV size and wall thickness.left ventricular ejection fraction is estimated at 55-60 %. No evidence of regional wall motion abnormality Right Ventricle Normal right ventricular size. Right Atrium Mild right atrial dilatation. RA area= 17.5cm2 Left Atrium Normal left atrial size. Mitral Valve Structurally normal mitral valve. Aortic Valve Aortic valve not well visualized. No aortic valve stenosis or regurgitation. Tricuspid Valve Structurally normal tricuspid valve. Trace TR. Pulmonic Valve Pulmonic valve not well visualized. No pulmonic regurgitation. Pericardium Normal pericardium. Aorta Normal size aortic root and proximal ascending aorta. CONCLUSIONS Normal LV size and wall thicknes. LVEF estimated at 55-60%No evidence of regional wall motion abnormality. No significant valvular dysfunction No pericardial effusion Previewed by: Dr Gareth Duenas (Electronically Signed) Final Date: 23 May 2023 21:45
[2023-05-24] MEDS: HYDROmorphone 0.5 MG/0.5 ML SYRINGE IVP PRN ×2 (03:25→07:34)
[2023-05-24] MEDS: ACETAMINOPHEN TAB 325 MG TAB PO PRN (07:33)
[2023-05-24] MEDS: MULTIVITAMINS, THERA 1 EACH TAB PO SCH (07:33)
[2023-05-24] MEDS: SODIUM CHLORIDE 0.9% 1,000 ML IV SCH (07:34)
[2023-05-24] MEDS: HEPARIN SODIUM,PORCINE 5,000 UNIT/ML 1 ML VIAL SQ SCH (07:44)
[2023-05-24] MEDS: HYDROcodone/APAP 5-325MG 1 EACH TAB PO PRN ×2 (08:54→12:29)
[2023-05-24] MEDS ORDERED: THIAMINE 100 MG TAB PO SCH (09:00)
--- NOTE | 2023-05-24 10:46 | XR ---
EXAMINATION TYPE: XR shoulder complete LT DATE OF EXAM: 05/24/2023 CLINICAL HISTORY: pain COMPARISON: NONE TECHNIQUE: Three views of the left shoulder are obtained. FINDINGS: There is no acute fracture/dislocation evident. The acromioclavicular and glenohumeral nigel int spaces appear within normal limits. The visualized ribs are intact and unremarkable. IMPRESSION: 1. There is no acute fracture or dislocation. ICD 10 NO FRACTURE, INITIAL EVALUATION
--- NOTE | 2023-05-24 10:46 | XR ---
EXAMINATION TYPE: XR Hip Complete LT DATE OF EXAM: 05/24/2023 CLINICAL HISTORY: pain TECHNIQUE: AP and frogleg views of the left hip are obtained. COMPARISON: None. FINDINGS: There is no acute fracture/dislocation evident. The joint space appears moderately narro wed. The overlying soft tissue appears unremarkable. IMPRESSION: 1. There is no acute fracture or dislocation.ICD 10 NO FRACTURE, INITIAL EVALUATION
[2023-05-24 11:23] LABS: HCT 36.1 % (34.0-46.0); MCH 32.5 pg (25.0-35.0); MCHC 33.1 g/dL (31.0-37.0); MCV 98.2 fL (80.0-100.0); Mean Platelet Volume 8.6; Platelet Count 140 k/uL (150-450); RBC 3.67 m/uL (3.80-5.40); RDW 12.8 % (11.5-15.5); WBC 5.4 k/uL (3.8-10.6)
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
[2023-05-24 12:26] VITALS: BP 144/80; PULSE 84; RESP 16; TEMP 98.4
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
== END 2023-05-24 13:59 | disposition home or self-care (01) | DRG 184 ==
LOC: EC 11:14 → 3SCARD 14:27
PROVIDERS: ADMIT Surgery Plastic and Reconstructive Surgery; ATTEND Surgery Plastic and Reconstructive Surgery
DX: S22.41XA Multiple fractures of ribs, right side, initial encounter for closed fracture (principal); S26.91XA Contusion of heart, unspecified with or without hemopericardium, initial encounter; S27.0XXA Traumatic pneumothorax, initial encounter; S27.329A Contusion of lung, unspecified, initial encounter; Q67.6 Pectus excavatum; F10.20 Alcohol dependence, uncomplicated; M19.90 Unspecified osteoarthritis, unspecified site; V89.2XXA Person injured in unspecified motor-vehicle accident, traffic, initial encounter; I25.10 Atherosclerotic heart disease of native coronary artery without angina pectoris; Y92.410 Unspecified street and highway as the place of occurrence of the external cause; Z91.041 Radiographic dye allergy status; Z91.013 Allergy to seafood; K08.89 Other specified disorders of teeth and supporting structures
CPT/HCPCS: 36415; 70450; 71045; 71046; 71250; 72125; 73502; 74176; 80053; 84484; 85025; 85027; 85610; 85730; 86850; 86900; 86901; 93005; 93306

== ENCOUNTER → 2023-07-19 | Outpatient (CLI) | payer MEDICARE ==
--- NOTE | 2023-07-19 11:38 | MR ---
EXAMINATION TYPE: MR brain wo con DATE OF EXAM: 07/19/2023 11:17 AM COMPARISON: NONE HISTORY: no prior, vertigo FINDINGS: The ventricles, basal cisterns and sulci overlying the cerebral convexities are mildly enlarged. There is evidence of mild periventricular white matter ischemic demyelination. Remote deep white matter insults are also noted. No acute edema is seen on diffusion weighted imaging. There is no evidence for midline shift or mass effect. Acute intracranial hemorrhage or extra-axial collection is not evident. The paranasal sinuses and mastoid air cells are well-aerated. IMPRESSION: Age-related atrophic and chronic small vessel ischemic change. No acute intracranial process at this time.
== END | disposition home or self-care (01) ==
LOC: RADMRIMAIN 10:43
PROVIDERS: ATTEND Family Medicine
DX: G31.1 Senile degeneration of brain, not elsewhere classified (principal); I67.82 Cerebral ischemia
CPT/HCPCS: 70551

== ENCOUNTER → 2023-09-27 | Outpatient (CLI) | payer MEDICARE ==
--- NOTE | 2023-09-27 21:06 | MM ---
Reason for Exam: Screening (asymptomatic). Last screening mammogram was performed 12 month(s) ago. Patient History: Menarche at age 13. First Full-Term at age 25. Postmenopausal. Maternal grandmother had breast cancer. Risk Values: Jillian 5 year model risk: 1.6%. NCI Lifetime model risk: 3.2%. Prior Study Comparison: 06/24/2020 Bilateral Screening Mammogram, [facility]. 09/23/2021 Bilateral Screening Mammogram, [facility]. 09/26/2022 Bilateral MG 3D screening mammo w/cad, [facility]. Tissue Density: There are scattered fibroglandular densities. Findings: Analyzed By CAD. The pattern is symmetrical. Benign spherical and punctate calcifications are present bilaterally. No significant interval change is evident. No suspicious groups of microcalcifications, spiculated or lobular masses, architectural distortion or other secondary signs of malignancy are mammographically apparent. Overall Assessment: Benign, BI-RAD 2 Management: Screening Mammogram of both breasts in 1 year. A negative mammogram report should not preclude additional follow up of suspicious palpable abnormalities. Patient should continue monthly self breast exam. A clinical breast exam by your physician is recommended on an annual basis and results should be correlated with mammographic findings. Electronically signed and approved by: Linus Torres D.O. Radiologis
--- NOTE | 2023-09-27 21:23 | BD ---
EXAMINATION TYPE: Axial Bone Density DATE OF EXAM: 09/27/2023 CLINICAL HISTORY: 77 years old Female. ICD-10 CODE: M85.80 OTH DISRD OF BONE DENSITY Height: 61in Weight: 134lb FRAX RISK QUESTIONS: Secondary Osteoporosis: RISK FACTORS HISTORY OF: Surgery to Spine/Hip(right/left)/Wrist (right/left): rt hip replacement When: about 5-6 years ago MEDICATIONS: EXAM MEASUREMENTS: Bone mineral densitometry was performed using the [employer] System. Bone mineral density as measured about the Lumbar spine is: ----- L1-L4(G/cm2): 1.407 T Score Values are as follows: ----- L1: 1.8 ----- L2: 2.9 ----- L3: 1.6 ----- L4: 1.2 ----- L1-L4: 1.9 Z Score Values are as follows: ----- L1: 3.7 ----- L2: 4.9 ----- L3: 3.5 ----- L4: 3.2 ----- L1-L4: 3.8 Bone mineral density has: Increased 0.9% since study of: 08-03-21 Bone mineral density about the R hip (g/cm2): 0.869 T Score values are as follows: -----R Neck: 0.2 -----R Total: -1.1 Z Score values are as follows: -----R Neck: 2.3 -----R Total: 0.8 Bone mineral density has: Increased 2.8% since study of: 08-03-21 FRAX%s: The graph provided illustrates a 7.8% chance for a major osteoporotic fx and a 0.7% chance fo r the hips probability for fx in 10 years time. IMPRESSION: Normal (Values between +1 and -1 indicate normal bone mass). Consider repeating this study in 5 year s or sooner if there is some new clinical indication. NOTE: T-SCORE=SD OF THE YOUNG ADULT MEAN.
== END | disposition home or self-care (01) ==
LOC: RADMAMWWP 10:13
PROVIDERS: ATTEND Family Medicine
DX: Z12.31 Encounter for screening mammogram for malignant neoplasm of breast (principal); M85.80 Other specified disorders of bone density and structure, unspecified site; Z80.3 Family history of malignant neoplasm of breast; Z78.0 Asymptomatic menopausal state
CPT/HCPCS: 77063; 77067; 77080

== ENCOUNTER → 2023-11-13 | Outpatient (CLI) | payer MEDICARE ==
[2023-11-13 13:40] LABS: African American GFR (CKD) >90 (>60 ml/min/1.73 sqM); Blood Urea Nitrogen 17 mg/dL (7-17); Non-African American GFR(CKD) 87 (>60 ml/min/1.73 sqM)
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
== END | disposition home or self-care (01) ==
LOC: RADCTMAIN 12:53
PROVIDERS: ATTEND Internal Medicine Critical Care Medicine
DX: J18.1 Lobar pneumonia, unspecified organism (principal); Q67.6 Pectus excavatum
CPT/HCPCS: 82565; 84520; 71260; 36415; Q9967

== ENCOUNTER → 2024-10-30 | Outpatient (CLI) | payer MEDICARE ==
--- NOTE | 2024-10-30 12:19 | MM ---
Reason for Exam: Screening (asymptomatic). Last mammogram was performed 1 year(s) and 2 month(s) ago. Patient History: Menarche at age 13. First Full-Term at age 25. Postmenopausal. Maternal grandmother had breast cancer, age 70. Risk Values: Jillian 5 year model risk: 1.6%. NCI Lifetime model risk: 3.0%. Prior Study Comparison: 09/23/2021 Bilateral Screening Mammogram, [facility]. 09/26/2022 Bilateral MG 3D screening mammo w/cad, [facility]. 09/27/2023 Bilateral MG 3D screening mammo w/cad, [facility]. Tissue Density: The breasts are heterogeneously dense, which may obscure small masses. Findings: Analyzed By CAD. There is no suspicious group of microcalcifications or new suspicious mass in either breast. Overall Assessment: Benign, BI-RAD 2 Management: Screening Mammogram of both breasts in 1 year. . Patient should continue monthly self-breast exams. A clinical breast exam by your physician is recommended on an annual basis. This exam should not preclude additional follow-up of suspicious palpable abnormalities. Note on Jillian scores and lifetime risk: 1. A Jillian score greater than 3% is considered moderate risk. If this is the case, consider specialist referral to assess eligibility for a risk reducing agent. 2. If overall lifetime risk for the development of breast cancer is 20% or higher, the patient may qualify for future screening with alternating mammogram and breast MRI. [facility], , 10/30/2024 12:17 PM. Electronically signed and approved by: Ritchie Ritchie M.D. Radiologis
== END | disposition home or self-care (01) ==
LOC: RADMAMWWP 09:37
PROVIDERS: ATTEND Family Medicine
DX: Z12.31 Encounter for screening mammogram for malignant neoplasm of breast (principal); R92.333 Mammographic heterogeneous density, bilateral breasts; Z78.0 Asymptomatic menopausal state; Z80.3 Family history of malignant neoplasm of breast
CPT/HCPCS: 77063; 77067

== ENCOUNTER → 2024-11-27 | Outpatient (CLI) | payer MEDICARE ==
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
== END | disposition home or self-care (01) ==
LOC: RADMRIMAIN 20:15
PROVIDERS: ATTEND Family Medicine
DX: M48.061 Spinal stenosis, lumbar region without neurogenic claudication (principal); M51.16 Intervertebral disc disorders with radiculopathy, lumbar region
CPT/HCPCS: 72148

== ENCOUNTER → 2024-11-28 | Outpatient (CLI) | payer MEDICARE ==
--- NOTE | 2024-11-28 12:07 | CT ---
EXAMINATION TYPE: CT abdomen pelvis wo con DATE OF EXAM: 11/28/2024 11:33 AM COMPARISON: 05/22/2023 CLINICAL INDICATION: Female, 78 years old with history of R10.31 RIGHT LOWER QUADRANT PAIN; R SIDED H IP PAIN THAT WRAPS AROUND IN RT LOWER ABDOMINAL AREA TECHNIQUE: Axial CT abdomen pelvis wo con;Sagittal and coronal reformats were created on a separate workstation. No IV or oral contrast. CT DLP: 694 mGycm, Automated exposure control for dose reduction was used. FINDINGS: LOWER CHEST: Pectus excavatum deformity. Strandy scarring or atelectasis in the lower lungs. No pleur al effusion. ABDOMEN LIVER: Unremarkable GALLBLADDER AND BILE DUCTS: Unremarkable. PANCREAS: Suggestion of a 2.2 cm hypodense lesion along the superior pancreatic head versus 2.0 cm, p reviously. Indolent behavior would favor a benign etiology. Further detailed assessment of the pancre as MRI can BE considered. SPLEEN: Unremarkable. ADRENAL GLANDS: Unremarkable. KIDNEYS AND URETERS: Extrarenal pelvis left kidney. There is mild fullness of the right renal collect ing system and right ureter but no obstructing stone identified. PELVIS BLADDER: No evidence for wall thickening or mass given limitations of exam. However, there is elicia p elvic floor relaxation with funneling and inferior placement of the base of the bladder to the perine um. REPRODUCTIVE: Uterus is visualized. Ovaries not well delineated due to no clustered bowel loops. ABDOMEN & PELVIS STOMACH AND BOWEL: Prominent fluid-filled small bowel loops mid to lower abdomen and pelvis. Scattere d [id number] stool. Right-sided colonic diverticulosis. No pericolonic inflammatory change. Whi le the appendix is not well seen, no secondary findings of acute appendicitis right lower quadrant. N o evidence of bowel obstruction. PERITONEUM/RETROPERITONEUM: No evidence of pneumoperitoneum or free fluid. VASCULATURE: No evidence of aortic aneurysm. MUSCULOSKELETAL: No acute osseous abnormalities LYMPH NODES: No gross evidence for lymphadenopathy. SOFT TISSUE/ABDOMINAL WALL: Unremarkable IMPRESSION: 1. Slight asymmetric fullness to the right ureter but no obstructing stones are seen. Findings may r eflect a recently passed stone. Correlate with urinalysis and urine cytology. Consider follow-up edgar l ultrasound in 6-8 weeks to ensure no hydronephrosis develops from an underlying urothelial lesion. 2. Pelvic floor relaxation with inferior displacement and funneling of the base of the bladder to the level of the perineum. 3. Subtle 2.2 cm hypodense lesion of the pancreatic head in retrospect, measured 2.0 cm in 2022. Rela tive stability favors a benign etiology. Consider follow-up pancreas MRI for more detailed assessment . 4. Some scattered right-sided colonic diverticulosis without acute diverticulitis. Moderate stool in the right side of the abdomen. 5. Some scattered prominent fluid-filled small bowel loops mid to lower abdomen and pelvis could be t ransient but could represent a mild enteritis. [facility], Workstation: [facility], 11/28/2024 12:05 PM
== END | disposition home or self-care (01) ==
LOC: RADCTMAIN 10:45
PROVIDERS: ATTEND Family Medicine
DX: K57.30 Diverticulosis of large intestine without perforation or abscess without bleeding (principal); N32.89 Other specified disorders of bladder; K86.89 Other specified diseases of pancreas
CPT/HCPCS: 74176

== ENCOUNTER → 2024-12-06 | Outpatient (CLI) | payer MEDICARE ==
--- NOTE | 2024-12-06 08:39 | US ---
EXAMINATION TYPE: US kidneys/renal and bladder DATE OF EXAM: 12/06/2024 COMPARISON: CT abdomen and pelvis 11/28/2024 CLINICAL INDICATION: Female, 78 years old with history of N28.89 DISORDERS OF KIDNEY AND URETER; ? Re cent renal stone, RLQ pain and UTI TECHNIQUE: Grayscale imaging of the bilateral kidneys and urinary bladder: FINDINGS: EXAM MEASUREMENTS: Right Kidney: 11.8 x 4.1 x 4.0 cm Left Kidney: 12.0 x 4.8 x 4.4 cm Post Void Residual Volume: NA mL Right Kidney: wnl, no evidence for hydronephrosis, mass or renal calculus. Left Kidney: wnl, no evidence for hydronephrosis, mass or renal calculus. Bladder: wnl Bilateral Jets seen: Yes Normal Post Void Residual: NA There is no evidence for hydronephrosis at this point in time. No nephrolithiasis is seen. No guido s are identified. The urinary bladder is anechoic. IMPRESSION: No renal stones or hydronephrosis seen bilaterally. [facility], , 12/06/2024 8:37 AM
== END | disposition home or self-care (01) ==
LOC: RADUSWWP 08:15
PROVIDERS: ATTEND Family Medicine
DX: N28.89 Other specified disorders of kidney and ureter (principal)
CPT/HCPCS: 76770

== ENCOUNTER → 2024-12-10 | Outpatient (CLI) | payer MEDICARE ==
--- NOTE | 2024-12-11 16:04 | MR ---
EXAMINATION TYPE: MR pancreas wo/w con DATE OF EXAM: 12/10/2024 9:14 PM INDICATION: Patient age:Female; 78 years old; Reason for study: K86.9; [facility]. COMPARISON: CT abdomen and pelvis 11/28/2024, renal ultrasound 12/06/2024, CT chest abdomen pelvis 2022 TECHNIQUE: Multiplanar multi-sequence imaging was performed without and with IV contrast. The patie nt was given 6 ccs of Gadobutrol intravenously and dynamic imaging was performed. Post IV contrast beauchamp btraction images were also submitted for review. FINDINGS: LOWER CHEST: Cardiomegaly. Pectus excavatum within the minimal AP diameter of 2.8 cm between the ster num and the anterior vertebral body. ABDOMEN Liver: Unremarkable. Gallbladder and Bile ducts: Unremarkable. Pancreas: No pancreatic ductal dilatation. Pancreatic head 2.3 x 1.7 cm lesion with thin septations. There are 2 nonenhancing marrow nodules identified measuring up to 8 mm and 3 mm (series 701, image 2 9 and 28). Pancreatic tail thin-walled T2 hyperintense cystic 7 mm lesion. No suspicious enhancement or mural nodularity. Additional few tiny 1 to 2 mm scattered increased. No surrounding inflammatory c hanges or organized fluid collections. Spleen: Unremarkable. Adrenal glands: Unremarkable. Kidneys: Unremarkable. Stomach and Bowel: Unremarkable as visualized. Peritoneum: No evidence of pneumoperitoneum, free fluid, or adenopathy. Vasculature: Unremarkable. No aortic aneurysm. Abdominal wall: Unremarkable. Musculoskeletal: The osseous structures appear intact. Dextrocurvature of the thoracolumbar spine. Mu ltilevel degenerative disc disease with multilevel disc bulges. IMPRESSION: Pancreatic head 2.3 cm complex cystic lesion with thin septations and mural nodularity. No suspicious enhancement. Etiologies include intraductal papillary mucinous neoplasm versus mucinous cystic neopl asm versus other etiologies. Additional smaller thin-walled pancreatic cysts without mural nodularity or enhancement. Recommend further evaluation with endoscopic ultrasound. [facility], , 12/11/2024 4:02 PM
== END | disposition home or self-care (01) ==
LOC: RADMRIMAIN 20:45
PROVIDERS: ATTEND Family Medicine
DX: K86.2 Cyst of pancreas (principal)
CPT/HCPCS: 74183; A9585